=== PATIENT | female | born 1945 | race Hispanic/Latino ===

== ENCOUNTER 2019-02-20 08:46 | Outpatient (CLI) | payer MEDICARE, OTHER | END 2019-02-20 08:47 | disposition home or self-care (01) | LOC: C.PAT 08:46 | DX: H66.13 Chronic tubotympanic suppurative otitis media, bilateral (principal) ==

== ENCOUNTER 2019-03-11 06:59 | Day surgery (SDC) | payer MEDICARE, OTHER ==
[2019-02-20 09:11] VITALS: BMI 26.8
[2019-03-11] MEDS ORDERED: Acetaminophen-Codeine 300/30 mg Tab PO PRN (08:17)
[2019-03-11] MEDS ORDERED: Dextrose 5%/0.45% NS 1,000 ML IV SCH (08:30)
[2019-03-11] MEDS ORDERED: Ofloxacin 0.3% Ophth Soln ONE (11:00)
[2019-03-11] MEDS ORDERED: Propofol 10 mg/ml Inj (20 ML) ONE (11:10)
[2019-03-11] MEDS ORDERED: HYDROmorphone 0.5 mg/0.5 ml ISec IVP PRN (11:25)
[2019-03-11] MEDS ORDERED: Lactated Ringer's 1,000 ML IV ONE (11:31)
[2019-03-11 11:43] VITALS: O2SAT 100
[2019-03-11 14:28] VITALS: BP 137/66; PULSE 88; RESP 18; TEMP 98
--- NOTE | 2019-03-11 21:07 | OP ---
PROCEDURE DATE: 03/11/2019 PREOPERATIVE DIAGNOSES: Bilateral chronic otitis media. POSTOPERATIVE DIAGNOSES: Bilateral chronic otitis media. PROCEDURES: Bilateral myringotomy with tubes. SIGNIFICANT FINDINGS: Fluid noted behind both TMs. DESCRIPTION OF PROCEDURE: The patient was brought into room, placed in supine position. Anesthesia was initiated through facemask and IV. The head was turned. The patient was draped in the usual manner. The right ear was brought into view using operative microscope and ear speculum. Radial incision was made in the anterior-inferior quadrant of the eardrum. Fluid was noted behind the TM and suctioned out. Tube was placed. Floxin was placed. The head was turned. The other ear was brought into view using operative microscope and ear speculum. Radial incision was made in the anterior-inferior quadrant of the eardrum. Fluid was noted behind the TM and suctioned out. Tube was placed. Floxin was placed. Ear speculum and the microscope was taken out of position. The patient was taken off anesthesia and taken to the recovery room in stable manner. Jorge L Blanchard MD
== END 2019-03-11 14:31 | disposition home or self-care (01) ==
LOC: C.SDS 06:59
PROVIDERS: ATTEND Otolaryngology
DX: H66.13 Chronic tubotympanic suppurative otitis media, bilateral (principal); H66.93 Otitis media, unspecified, bilateral
CPT/HCPCS: 69436; J2704; J3010; J7120